=== PATIENT | male | born 1970 | race Caucasian/White ===

== ENCOUNTER 2021-11-24 07:51 | Day surgery (SDC) | payer MEDICAID ==
[~2021-11-24 07:51] MED LIST: AMLODIPINE BESY10 MG PO; AMLODIPINE5 MG PO; AMOXICILLIN500 MG PO; ASPIRIN 81 LOW81 MG PO; ASPIRIN81 MG PO; B-12500 MC1 PO; BABY ASPIRIN81 MG PO; BYETTA5 MCG/0.02 SC; CALCI17 PO; CIPRO500 MG PO; CRESTOR5 MG PO; FISH OIL1000 MG PO; FLONASE NASAL50 MCG; FLUARIX QUADRIV1 IN1 IM; FLUZONE SPLT1 M1 IM; LISINOP/HCTZ1 TA1 PO; LISINOP/HCTZ1 TA2 PO; LISINOP/HCTZ1 TAB PO; LISINOPRIL10 MG PO; LISINOPRIL2.5 MG PO; LISINOPRIL20 M1 PO; LOVASTATIN10 M1 PO; MEDDOSEPAK PO; METFORMIN1000 MG PO; METFORMIN500 M2 PO; MUCINEX600 MG PO; MULTI VITAMIN MENS PO; NO HOME MEDS; POLYTRIM OU; PROSTAT PO; ROBITUSSIN AC10 ML PO; TOBRAMYCIN0.3 % OS; WAL-ZYR10 MG PO; ZOCOR10 MG PO; ZYRTEC; [UNRECOGNIZED DRUG - REMARK] SC; [UNRECOGNIZED DRUG - SUPPLY] XX
[2021-11-24] MEDS ORDERED: MULTI VIT PO (08:17)
[2021-11-24] MEDS ORDERED: PROSTAT1 PO ×2 (08:19→08:22)
[2021-11-24 11:09] VITALS: BP 153/93
== END 2021-11-24 11:43 | disposition home or self-care (01) ==
LOC: ENDO 07:51 → ORM 10:00 → ENDO 11:43
PROVIDERS: ATTEND Surgery
DX: R19.4 Change in bowel habit (principal); K92.1 Melena; I10 Essential (primary) hypertension; E11.9 Type 2 diabetes mellitus without complications; Z79.84 Long term (current) use of oral hypoglycemic drugs; Z80.0 Family history of malignant neoplasm of digestive organs